=== PATIENT | male | born 2000 | race Two or more races ===

== ENCOUNTER → 2024-05-14 | Outpatient (CLI) | payer BC, MEDICAID, SELFPAY ==
[2024-05-14 13:29] LABS: Collection Type, Urine Clean Catch; Squamous Epithelial Cell,Urine 0 /hpf (0-5)
[2024-05-14 14:32] LABS: Bilirubin,Urine Negative (Negative); Blood,Urine Trace (Negative); Clarity,Urine Clear (Clear/Hazy); Color,Urine Lt-Yellow (Lt Yel-Yel); Glucose, Urine Negative (Negative); Ketones,Urine Negative (Negative); Leukocyte Esterase,Urine Negative (Negative); Nitrite,Urine Negative (Negative); PH,Urine 6.5 (5.0-7.0); Protein,Urine 3+ (Neg - Trace); RBC,Urine 3 /hpf (0-3); Specific Gravity,Urine 1.016 (1.001-1.035); Urobilinogen,Urine Negative mg/dL (0.0-1.0); WBC,Urine 2 /hpf (0-5)
[2024-05-14 15:03] LABS: Creatinine,Random Urine 123 mg/dL (30-125); Protein Total, Random Urine 413 mg/dL (1-14)
== END | disposition home or self-care (01) ==
PROVIDERS: PCP Internal Medicine; Referring Provider Internal Medicine; Visit Provider Internal Medicine
DX: N04.1 Nephrotic syndrome with focal and segmental glomerular lesions (principal)
CPT/HCPCS: 81001; 82570; 84156